=== PATIENT | male | born 1975 | race Caucasian/White ===

== ENCOUNTER 2019-03-06 18:51 | Emergency (ER) | payer BC, OTHER ==
[~2019-03-06] VITALS: Ht 182.9 cm; Wt 104.3 kg
[~2019-03-06 18:51] MED LIST: AMOCLA875 PO; CEPH500 PO; IBUP800 PO; OXYACE5T PO; OXYACE7.5T; Percocet 5-3251 EACH PO; Zantac150 MG PO
[2019-03-06] MEDS ORDERED: TESTOSTERONE75 GM (19:09)
[2019-03-06 19:35] LABS: BASOPHILS ABSOLUTE AUTO 0.09 K/mm3 (0.00-0.23); BASOPHILS PERCENT AUTO 1 % (0-2); EOSINOPHILS ABSOLUTE AUTO 0.21 K/mm3 (0.00-0.68); EOSINOPHILS PERCENT AUTO 2 % (0-6); Hematocrit 51.3 % (37.0-53.0); Hemoglobin 17.4 g/dL (13.5-17.5); IMMATURE GRAN ABSOLUTE AUTO 0.07 K/mm3 (0.00-0.10); IMMATURE GRAN PERCENT AUTO 1 % (0-1); LYMPHOCYTES ABSOLUTE AUTO 1.78 K/mm3 (0.84-5.20); LYMPHOCYTES PERCENT AUTO 20 % (21-46); MONOCYTES ABSOLUTE AUTO 0.75 K/mm3 (0.16-1.47); MONOCYTES PERCENT AUTO 8 % (4-13); Mean Corpuscular HGB 31.6 pg (26.0-34.0); Mean Corpuscular HGB Conc 33.9 g/dL (31.5-36.5); Mean Corpuscular Volume 93 fL (80-100); Mean Platelet Volume 10.4 fL (9.1-12.4); NEUTROPHILS ABSOLUTE AUTO 6.18 K/mm3 (1.96-9.15); NEUTROPHILS PERCENT AUTO 68 % (41-73); Platelet Count 323 K/mm3 (150-400); RDW Coefficient Variation 12.7 % (11.7-14.2); RDW Standard Deviation 43.8 fL (35.1-46.3); Red Blood Cell Count 5.51 M/mm3 (4.30-5.90); White Blood Cell Count 9.08 K/mm3 (4.00-11.30)
[2019-03-06 19:59] LABS: Magnesium, Blood 2.2 mg/dL (1.6-2.4); Troponin I <0.015 ng/mL (0.000-0.040)
[2019-03-06 20:00] LABS: Alanine Aminotransfer (ALT/SGP 59 U/L (12-78); Albumin, Blood 4.1 g/dL (3.4-5.0); Albumin/Globulin Ratio 1.1 (0.8-1.8); Alk Phos 77 U/L (50-136); Anion Gap 7 mmol/L (6-16); Aspartate Aminotrans (AST/SGOT 30 U/L (12-37); Bilirubin, Total 0.6 mg/dL (0.1-1.0); Blood Urea Nitrogen 15 mg/dL (8-24); CO2, Blood 23 mmol/L (21-32); Chloride, Blood 108 mmol/L (98-108); Creatinine, Blood 1.25 mg/dL (0.60-1.20); Globulin, Blood 3.9 g/dL (2.2-4.0); Glomerular Filtration Rate >60 (60-); Glucose, Blood 97 mg/dL (70-99); Potassium, Blood 4.3 mmol/L (3.5-5.5); Sodium, Blood 138 mmol/L (136-145)
[2019-03-07] MEDS ORDERED: ASPI325 PO (00:11)
[2019-03-07] MEDS ORDERED: Lopressor 25 mg25 MG PO (00:11)
== END 2019-03-07 00:26 | disposition home or self-care (01) ==
LOC: ER 18:51
PROVIDERS: Physician Assistant
DX: I48.91 Unspecified atrial fibrillation (principal)
CPT/HCPCS: 36415; 71046; 80053; 83735; 84443; 84484; 85025; 85379; 93005; 93010; 99285-25

== ENCOUNTER 2019-03-16 23:03 | Observation (INO) | payer BC, OTHER ==
[~2019-03-16] VITALS: Ht 182.9 cm; Wt 99.5 kg
[~2019-03-16 23:03] MED LIST changes: +ASPI325 PO; +Lopressor 25 mg25 MG PO; +TESTOSTERONE75 GM
[2019-03-16 23:53] LABS: BASOPHILS ABSOLUTE AUTO 0.08 K/mm3 (0.00-0.23); BASOPHILS PERCENT AUTO 1 % (0-2); EOSINOPHILS ABSOLUTE AUTO 0.24 K/mm3 (0.00-0.68); EOSINOPHILS PERCENT AUTO 3 % (0-6); Hematocrit 48.4 % (37.0-53.0); Hemoglobin 16.6 g/dL (13.5-17.5); IMMATURE GRAN ABSOLUTE AUTO 0.02 K/mm3 (0.00-0.10); IMMATURE GRAN PERCENT AUTO 0 % (0-1); LYMPHOCYTES ABSOLUTE AUTO 2.38 K/mm3 (0.84-5.20); LYMPHOCYTES PERCENT AUTO 30 % (21-46); MONOCYTES ABSOLUTE AUTO 0.83 K/mm3 (0.16-1.47); MONOCYTES PERCENT AUTO 10 % (4-13); Mean Corpuscular HGB 32.3 pg (26.0-34.0); Mean Corpuscular HGB Conc 34.3 g/dL (31.5-36.5); Mean Corpuscular Volume 94 fL (80-100); Mean Platelet Volume 10.7 fL (9.1-12.4); NEUTROPHILS ABSOLUTE AUTO 4.42 K/mm3 (1.96-9.15); NEUTROPHILS PERCENT AUTO 55 % (41-73); Platelet Count 316 K/mm3 (150-400); RDW Coefficient Variation 12.7 % (11.7-14.2); RDW Standard Deviation 44.3 fL (35.1-46.3); Red Blood Cell Count 5.14 M/mm3 (4.30-5.90); White Blood Cell Count 7.97 K/mm3 (4.00-11.30)
[2019-03-17 00:15] LABS: Alanine Aminotransfer (ALT/SGP 49 U/L (12-78); Albumin/Globulin Ratio 1.2 (0.8-1.8); Alk Phos 68 U/L (50-136); Anion Gap 6 mmol/L (6-16); Aspartate Aminotrans (AST/SGOT 25 U/L (12-37); Bilirubin, Total 0.4 mg/dL (0.1-1.0); Blood Urea Nitrogen 20 mg/dL (8-24); Bun/Creatinine Ratio 16.5 (12.0-20.0); CO2, Blood 29 mmol/L (21-32); Calcium, Blood 8.9 mg/dL (8.5-10.1); Chloride, Blood 105 mmol/L (98-108); Creatinine, Blood 1.21 mg/dL (0.60-1.20); Free Thyroxine 0.93 ng/dL (0.70-1.60); Globulin, Blood 3.3 g/dL (2.2-4.0); Glomerular Filtration Rate >60 (60-); Glucose, Blood 93 mg/dL (70-99); Potassium, Blood 4.1 mmol/L (3.5-5.5); Sodium, Blood 140 mmol/L (136-145); Total Protein, Blood 7.3 g/dL (6.4-8.2); Troponin I <0.015 ng/mL (0.000-0.040)
--- NOTE | 2019-03-17 03:43 | NUR ---
*ORTHO VS* 0224- SITTING, BP-124/84, P-67, O2-95% 0225- STANDING, BP-120/82, P-62, O2-94%
--- NOTE | 2019-03-17 04:07 | NUR ---
SHIFT SUMMARY PT ARRIVED FROM ED IN NO DISTRESS. PT DENIED ANY DIZZINESS OR BEING LIGHTHEADED. PT HAS BEEN NPO SINCE ARRIVAL ORDERED. PT CURRENTLY SLEEPING. PT IN A-FIB PER TELE. PT AND DAUGHTER STAYED NIGHT WITH PT. CALL LIGHT IN REACH.
[2019-03-17 08:28] LABS: Troponin I <0.015 ng/mL (0.000-0.040)
--- NOTE | 2019-03-17 11:16 | NUR ---
CALLED DR. JOHANNA GAR AND LET HER KNOW PATIENT DOCTOR FROM [place], DIRECT LINE--[phone].
--- NOTE | 2019-03-17 17:51 | NUR ---
D/C INSTRUCTIONS PROVIDED AND EXPLAINED TO PT. TELE AND IV REMOVED. NO NEW MEDS TO FAX. PT D/C VIA AMBULATION WITH SIGNIFICANT OTHER AT 1165.
== END 2019-03-17 17:30 | disposition home or self-care (01) ==
LOC: ER 23:03 → MEDS 23:04
PROVIDERS: Emergency Medicine; ADMIT Internal Medicine
DX: R42 Dizziness and giddiness (principal); I48.2 Chronic atrial fibrillation; Z79.899 Other long term (current) drug therapy; Z79.82 Long term (current) use of aspirin
CPT/HCPCS: 36415; 80053; 84439; 84443; 84484; 85025; 93005; 93010; 93306; 99285-25; G0378; J7030

== ENCOUNTER → 2022-10-15 | Outpatient (CLI) | payer BC ==
[~2022-10-15] MED LIST changes: +DOFE250; +ELIQUIS2.5 MG
== END | disposition home or self-care (01) ==
LOC: PLD 14:47 → LAB SHORT 14:47
DX: D23.39 Other benign neoplasm of skin of other parts of face (principal)
CPT/HCPCS: 88305